=== PATIENT | male | born 1945 | race Caucasian/White ===

== ENCOUNTER 2017-02-01 16:55 | Inpatient (IN) | payer MEDICARE, OTHER ==
[~2017-02-01] VITALS: Ht 182.9 cm; Wt 86.1 kg
[~2017-02-01 16:55] MED LIST: ASPI325T4 PO; CILO50TA PO; CYAN500T18 PO; FLUT1DIS3 INH; FURO20TA3 PO; GABA600T2 PO; LATA2.5D3 LEFTEYE; LISI5TAB7 PO; MECL12.52 PO; MULT-298 PO; MULT-750 PO; OSEL75CA PO; SENN1TAB35 PO; TAMS0.4C2 PO; TRAZ150T18; TRAZ50TA18 PO; [UNRECOGNIZED DRUG - OTHER]
[2017-02-01] MEDS ORDERED: SODIUM CHLORIDE 0.9% 1,000ML IVBOLUS ONE (17:30)
[2017-02-01] MEDS ORDERED: SODIUM CHLORIDE FLUSH 10ML SYR IVF ONE (17:30)
[2017-02-01 18:09] LABS: ASPARTATE AMINO TRANSFERASE 15 U/L (15-37); BLOOD UREA NITROGEN 16 mg/dL (7-18)
[2017-02-01] MEDS ORDERED: SODIUM CHLORIDE 0.9% 1,000 ML IV SCH (19:22)
[2017-02-01] MEDS ORDERED: MORPHINE SULFATE 4 MG/ML, 1ML IVPush PRN (19:30)
[2017-02-01] MEDS ORDERED: ONDANSETRON 2MG/ML, 2ML IVP PRN (19:30)
[2017-02-01] MEDS ORDERED: BISACODYL 10 MG SUPP PR PRN (19:30)
[2017-02-01] MEDS ORDERED: DOCUSATE 100 MG CAPSULE PO PRN (19:30)
[2017-02-01] MEDS ORDERED: ENALAPRILAT 1.25 MG/ML, 2ML IVPush PRN ×2 (19:30→19:32)
[2017-02-01] MEDS ORDERED: ACETAMINOPHEN 325 MG TABLET PO PRN (19:30)
[2017-02-01] MEDS ORDERED: POLYETHYLENE GLYCOL 17 GM PACKET PO PRN (19:30)
[2017-02-01] MEDS ORDERED: OXYcodone IR 5MG TABLET PO PRN (19:30)
[2017-02-01 20:27] LABS: IS PT STATUS REG ER OR PRE ER? YES
[2017-02-01 21:00] VITALS: BP 167/90
[2017-02-01] MEDS ORDERED: ATORVASTATIN 20 MG TABLET PO SCH (21:00)
[2017-02-01 21:30] VITALS: BP 155/89
[2017-02-01] MEDS: HEPARIN 5,000 UNITS/ML, 1ML SQ SCH (22:23)
[2017-02-01] MEDS: CILOSTAZOL 100 MG TABLET PO SCH (23:04)
[2017-02-01] MEDS: ASPIRIN 325 MG TABLET EC PO SCH (23:04)
[2017-02-01] MEDS ORDERED: TEMAZEPAM 15 MG CAPSULE PO PRN (23:30)
[2017-02-02 01:58] LABS: HEMOGLOBIN 13.3 g/dL (13.7-18.0)
[2017-02-02 02:00] VITALS: BP 158/88
[2017-02-02 02:16] LABS: IS PT STATUS REG ER OR PRE ER? NO
[2017-02-02 02:22] LABS: BLOOD UREA NITROGEN 17 mg/dL (7-18)
[2017-02-02 02:25] LABS: ASPARTATE AMINO TRANSFERASE 12 U/L (15-37)
[2017-02-02] MEDS: HEPARIN 5,000 UNITS/ML, 1ML SQ SCH ×2 (06:11→15:04)
[2017-02-02 07:07] VITALS: BP 159/92
[2017-02-02] MEDS ORDERED: REGADENOSON 0.4 MG/5 ML SYRINGE ONE (08:26)
[2017-02-02] MEDS ORDERED: MULTIVITAMIN 1 TABLET PO SCH (09:00)
[2017-02-02] MEDS ORDERED: LISINOPRIL 10 MG TABLET PO SCH (09:00)
[2017-02-02] MEDS ORDERED: TAMSULOSIN 0.4 MG CAP.ER.24H PO SCH (09:00)
[2017-02-02] MEDS ORDERED: OMNIPAQUE 350 MG/ML, 100ML BOTTLE ONE (11:00)
[2017-02-02] MEDS: CILOSTAZOL 100 MG TABLET PO SCH (12:19)
[2017-02-02] MEDS: ASPIRIN 325 MG TABLET EC PO SCH (12:20)
[2017-02-02 12:35] VITALS: BP 165/91
[2017-02-02 13:20] VITALS: BP 142/82
[2017-02-02] MEDS ORDERED: ATORVASTATIN 20 MG TABLET PO SCH (21:00)
== END 2017-02-02 18:00 | disposition home or self-care (01) | DRG 69 ==
LOC: ED 17:39 → EDIP 19:22 → 4WST 22:14
PROVIDERS: ADMIT Internal Medicine; ATTEND Internal Medicine
DX: G45.9 Transient cerebral ischemic attack, unspecified (principal); N40.0 Benign prostatic hyperplasia without lower urinary tract symptoms; I10 Essential (primary) hypertension; I73.9 Peripheral vascular disease, unspecified; D75.89 Other specified diseases of blood and blood-forming organs; F10.20 Alcohol dependence, uncomplicated; I07.1 Rheumatic tricuspid insufficiency; Z87.891 Personal history of nicotine dependence; Z88.8 Allergy status to other drugs, medicaments and biological substances
CPT/HCPCS: 36415; 70450; 70496; 70498; 70551; 78452; 80053; 80061; 80307; 81003; 82306; 82533; 82607; 83036; 83735; 84439; 84443; 84484; 85025; 87040; 93005; 93017; 93306; 93880; J1644; J2785; Q9967; A9502; C9898; J7030

== ENCOUNTER 2018-12-04 14:31 | Inpatient (IN) | payer MEDICARE, OTHER ==
[~2018-12-04] VITALS: Ht 182.9 cm; Wt 79.2 kg
[~2018-12-04 14:31] MED LIST changes: +ASPI325T17 PO; -ASPI325T4 PO; -GABA600T2 PO; +GABA600T7 PO; -TRAZ50TA18 PO; +TRAZ50TA66 PO
[2018-12-04] MEDS ORDERED: SODIUM CHLORIDE FLUSH 10ML SYR IVF ONE (15:00)
--- NOTE | 2018-12-04 15:07 | NUR ---
PT PLACED ON HEART MONITOR, BP CUFF, PULSE OX. SEE TRIAGE NOTE FOR REPORT OF SX BY PT. URINAL AT BS, PT AWARE OF NEED FOR UA. CALL LIGHT WITHIN REACH, VSS.
--- NOTE | 2018-12-04 15:19 | NUR ---
PT ATTEMPTED TO PROVIDE URINE SPECIMEN, URINATED ON FLOOR INSTEAD OF IN URINAL. 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 CALL LIGHT WITHIN REACH.
[2018-12-04 15:33] LABS: MEAN CORPUSCULAR HEMOGLOBIN 35.2 pg (27.5-34.5); MEAN CORPUSCULAR HGB CONC 34.8 g/dL (33.2-36.2); MEAN CORPUSCULAR VOLUME 101.1 fL (81-97); MEAN PLATELET VOLUME 8.2 fL (7.4-10.4); PLATELET COUNT 286 x10^3/uL (130-400); RED BLOOD COUNT 3.87 x10^6/uL (4.38-5.82); RED CELL DISTRIBUTION WIDTH 12.6 % (9.4-14.8)
[2018-12-04 15:43] LABS: MD YES
[2018-12-04 15:44] LABS: ANION GAP 9 mmol/L (5-15); CALCIUM 8.6 mg/dL (8.5-10.1); CHLORIDE 96 mmol/L (98-107); CREATININE 1.13 mg/dL (0.7-1.3)
[2018-12-04 15:49] LABS: TROPONIN I < 0.015 ng/mL (0.000-0.045)
[2018-12-04 16:17] LABS: BAND#(MANUAL) 1.09 x10^3/uL; BANDS%(MANUAL) 5 % (0-7); LYMPH#(MANUAL) 0.43 x10^3/uL (1-3.4); LYMPHS% (MANUAL) 2 % (22-44); MONOS#(MANUAL) 1.95 x10^3/uL (0.3-2.7); MONOS% (MANUAL) 9 % (2-9); MYELOCYTES# (MANUAL) 0.22 x10^3/uL (0-0); MYELOCYTES% (MANUAL) 1 % (0-0); SEG#(MANUAL) 18.01 x10^3/uL (1.8-6.8); SEGS% (MANUAL) 83 % (42-75)
[2018-12-04 16:18] LABS: <PLATELET ESTIMATE> ADEQUATE; <PLT MORPHOLOGY> NORMAL PLT MORPH
--- NOTE | 2018-12-04 16:20 | NUR ---
PREPARED TO ST CATH FOR SPECIMEN BUT PT ABLE TO URINATE SMALL AMOUNT OF DK YELLOW URINE ON OWN. SPECIMEN SENT TO LAB. PT AWARE OF ADMIT, CALLED TO NOTIFY. MED REC COMPLETED TO BEST OF ABILITY-PT CAN'T REMEMBER ALL MEDS. CALL LIGHT WITHIN REACH. VSS.
[2018-12-04 16:34] LABS: MICROSCOPIC AUTO
[2018-12-04 16:42] LABS: CULTURE INDICATED? YES
--- NOTE | 2018-12-04 16:47 | NUR ---
UA RESULT BACK, PT FOR RECHECK.
[2018-12-04] MEDS ORDERED: CEFTRIAXONE 1,000 MG in SODIUM CHLORIDE 0.9% 50 ML IVPB ONE (17:00)
[2018-12-04] MEDS ORDERED: CEFTRIAXONE PMX 1GM/50ML 50 ML ONE (17:03)
--- NOTE | 2018-12-04 17:15 | NUR ---
LACTIC DRAWN BY LAB. ROCEPHIN INFUSING PER ERP ORDER. PT UPDATED ON POC. PT REQUESTING FOOD, MEAL TRAY ORDERED. CALL LIGHT WITHIN REACH.
--- NOTE | 2018-12-04 17:46 | NUR ---
TASK RN: DIET TRAY DELIVERED TO PT.
--- NOTE | 2018-12-04 17:48 | NUR ---
TASK RN: PT EATING. NO ACUTE DISTRESS NOTED. NO NEEDS REQUESTED AT THIS TIME.
[2018-12-04] MEDS ORDERED: POLYETHYLENE GLYCOL 17 GM PACKET PO PRN (18:30)
[2018-12-04] MEDS ORDERED: ONDANSETRON ODT 4 MG PO PRN (18:30)
[2018-12-04] MEDS ORDERED: ACETAMINOPHEN 325 MG TABLET PO PRN (18:30)
[2018-12-04] MEDS ORDERED: BISACODYL 10 MG SUPP PR PRN (18:30)
[2018-12-04] MEDS ORDERED: CEFTRIAXONE PMX 1GM/50ML 50 ML IV SCH (18:30)
[2018-12-04 19:22] LABS: FOLATE LEVEL > 20.0 ng/mL (3.1-17.5)
[2018-12-04] MEDS: HEPARIN 5,000 UNITS/ML, 1ML SQ SCH (19:52)
[2018-12-04] MEDS: SODIUM CHLORIDE 0.9% 1,000 ML IV SCH (19:52)
[2018-12-04 20:01] VITALS: BP 147/79
[2018-12-04 20:39] VITALS: BP 125/72
[2018-12-04] MEDS: OXYcodone/APAP 5/325MG TABLET PO PRN (23:55)
[2018-12-05 00:04] VITALS: BP 101/62
[2018-12-05] MEDS: HEPARIN 5,000 UNITS/ML, 1ML SQ SCH ×3 (02:26→18:30)
[2018-12-05] MEDS: OXYcodone/APAP 5/325MG TABLET PO PRN ×2 (05:58→16:46)
[2018-12-05 05:59] LABS: MEAN CORPUSCULAR HEMOGLOBIN 34.6 pg (27.5-34.5); MEAN CORPUSCULAR HGB CONC 33.9 g/dL (33.2-36.2); MEAN PLATELET VOLUME 8.8 fL (7.4-10.4); PLATELET COUNT 255 x10^3/uL (130-400); RED BLOOD COUNT 3.52 x10^6/uL (4.38-5.82); RED CELL DISTRIBUTION WIDTH 12.6 % (9.4-14.8)
[2018-12-05 06:17] LABS: ALBUMIN 2.6 g/dL (3.4-5.0); ANION GAP 9 mmol/L (5-15); CALCIUM 8.2 mg/dL (8.5-10.1); CHLORIDE 101 mmol/L (98-107)
[2018-12-05 06:22] LABS: ALANINE AMINOTRANSFERASE 22 U/L (12-78); ALKALINE PHOSPHATASE 88 U/L (45-117); BILIRUBIN,TOTAL 0.5 mg/dL (0.2-1.0); CREATININE 1.02 mg/dL (0.7-1.3); TOTAL PROTEIN 6.1 g/dL (6.4-8.2)
[2018-12-05 06:23] LABS: MD YES
[2018-12-05 06:24] LABS: BAND#(MANUAL) 0.56 x10^3/uL; BANDS%(MANUAL) 4 % (0-7); LYMPHS% (MANUAL) 5 % (22-44)
[2018-12-05 06:25] LABS: MONOS#(MANUAL) 1.26 x10^3/uL (0.3-2.7); MONOS% (MANUAL) 9 % (2-9); SEG#(MANUAL) 11.48 x10^3/uL (1.8-6.8); SEGS% (MANUAL) 82 % (42-75)
[2018-12-05 06:27] LABS: <PLATELET ESTIMATE> ADEQUATE; <PLT MORPHOLOGY> NORMAL PLT MORPH
[2018-12-05] MEDS: SODIUM CHLORIDE 0.9% 1,000 ML IV SCH ×2 (08:40→19:51)
[2018-12-05] MEDS: LISINOPRIL 10 MG TABLET PO SCH (08:41)
[2018-12-05] MEDS: SENNA/DOCUSATE TABLET PO SCH (08:41)
[2018-12-05 09:45] VITALS: BP 111/70
[2018-12-05 14:00] VITALS: BP 122/75
[2018-12-05] MEDS: CEFTRIAXONE PMX 1GM/50ML 50 ML IV SCH (17:35)
[2018-12-05 18:28] VITALS: BP 116/69
[2018-12-05 18:43] VITALS: BP 148/84
[2018-12-05] MEDS ORDERED: LORazepam 2 MG/ML, 1ML IV PRN (19:00)
[2018-12-05] MEDS ORDERED: LORazepam 2 MG/ML, 1ML IVPush PRN (19:00)
[2018-12-05] MEDS ORDERED: LORazepam 1MG TABLET PO PRN ×3 (19:00)
[2018-12-05] MEDS ORDERED: LORazepam 0.5MG TABLET PO PRN (19:00)
[2018-12-05] MEDS: LORazepam 1MG TABLET PO PRN (19:51)
[2018-12-05] MEDS: LORazepam 2 MG/ML, 1ML IV PRN (21:11)
[2018-12-06] VITALS (7 sets, daily range): BP systolic 145–167; BP diastolic 82–95
[2018-12-06] MEDS: LORazepam 2 MG/ML, 1ML IV PRN ×9 (00:19→23:24)
[2018-12-06] MEDS: HEPARIN 5,000 UNITS/ML, 1ML SQ SCH ×3 (01:33→21:26)
[2018-12-06] MEDS: SODIUM CHLORIDE 0.9% 1,000 ML IV SCH ×2 (04:21→15:00)
[2018-12-06] MEDS: LORazepam 1MG TABLET PO PRN ×2 (08:54→11:01)
[2018-12-06] MEDS: LISINOPRIL 10 MG TABLET PO SCH (08:54)
[2018-12-06] MEDS: SENNA/DOCUSATE TABLET PO SCH ×2 (08:54→09:00)
[2018-12-06 11:28] LABS: MEAN CORPUSCULAR HGB CONC 34.1 g/dL (33.2-36.2); MEAN CORPUSCULAR VOLUME 102.4 fL (81-97); MEAN PLATELET VOLUME 8.2 fL (7.4-10.4); PLATELET COUNT 304 x10^3/uL (130-400); RED BLOOD COUNT 3.64 x10^6/uL (4.38-5.82); RED CELL DISTRIBUTION WIDTH 12.8 % (9.4-14.8)
[2018-12-06 11:36] LABS: ANION GAP 11 mmol/L (5-15); CALCIUM 8.8 mg/dL (8.5-10.1); CHLORIDE 108 mmol/L (98-107); CREATININE 0.84 mg/dL (0.7-1.3)
[2018-12-06 11:45] LABS: BASOPHILS # (AUTO) 0.01 x10^3/uL (0-0.1); BASOPHILS % (AUTO) 0 % (0-1); EOSINOPHILS # (AUTO) 0.08 x10^3/uL (0-0.4); EOSINOPHILS % (AUTO) 1 % (1-7); LYMPHOCYTES # (AUTO) 1.01 x10^3/uL (1-3.4); LYMPHOCYTES % (AUTO) 10 % (22-44); MD SCAN; MONOCYTES # (AUTO) 1.08 x10^3/uL (0.2-0.8); MONOCYTES % (AUTO) 10 % (2-9); NEUTROPHILS # (AUTO) 8.27 x10^3/uL (1.8-6.8); NEUTROPHILS % (AUTO) 79 % (42-75)
[2018-12-06] MEDS ORDERED: CHLORDIAZEPOXIDE 25 MG CAPSULE PO PRN (15:00)
[2018-12-06] MEDS: CEFTRIAXONE PMX 1GM/50ML 50 ML IV SCH (17:12)
[2018-12-06] MEDS: POTASSIUM CHLORIDE 20 MEQ, MAGNESIUM SULFATE 1 GM, FOLIC ACID 1 MG, THIAMINE 200 MG, MV... IV SCH (18:03)
[2018-12-06] MEDS: hydrALAzine 20 MG/ML, 1ML IV PRN (22:13)
[2018-12-07 01:20] VITALS: BP 137/72
[2018-12-07] MEDS: HEPARIN 5,000 UNITS/ML, 1ML SQ SCH ×3 (04:51→23:38)
[2018-12-07] MEDS: SODIUM CHLORIDE 0.9% 1,000 ML IV SCH (04:52)
[2018-12-07 06:28] VITALS: BP 153/87
[2018-12-07] MEDS: SENNA/DOCUSATE TABLET PO SCH (09:00)
[2018-12-07] MEDS: LISINOPRIL 10 MG TABLET PO SCH (09:00)
[2018-12-07 10:19] LABS: BASOPHILS % (AUTO) 0 % (0-1); EOSINOPHILS # (AUTO) 0.05 x10^3/uL (0-0.4); EOSINOPHILS % (AUTO) 1 % (1-7); LYMPHOCYTES # (AUTO) 1.01 x10^3/uL (1-3.4); LYMPHOCYTES % (AUTO) 9 % (22-44); MD NO; MEAN CORPUSCULAR HEMOGLOBIN 33.4 pg (27.5-34.5); MEAN CORPUSCULAR HGB CONC 32.9 g/dL (33.2-36.2); MEAN CORPUSCULAR VOLUME 101.6 fL (81-97); MEAN PLATELET VOLUME 8.4 fL (7.4-10.4); MONOCYTES # (AUTO) 0.98 x10^3/uL (0.2-0.8); MONOCYTES % (AUTO) 9 % (2-9); NEUTROPHILS # (AUTO) 9.22 x10^3/uL (1.8-6.8); NEUTROPHILS % (AUTO) 82 % (42-75); PLATELET COUNT 362 x10^3/uL (130-400); RED BLOOD COUNT 3.93 x10^6/uL (4.38-5.82)
[2018-12-07 10:26] LABS: ALANINE AMINOTRANSFERASE 26 U/L (12-78); ALBUMIN 2.5 g/dL (3.4-5.0); ANION GAP 11 mmol/L (5-15); CHLORIDE 113 mmol/L (98-107); CREATININE 0.71 mg/dL (0.7-1.3)
[2018-12-07 10:28] LABS: ALKALINE PHOSPHATASE 80 U/L (45-117); BILIRUBIN,TOTAL 0.3 mg/dL (0.2-1.0); TOTAL PROTEIN 6.4 g/dL (6.4-8.2)
[2018-12-07] MEDS: LORazepam 2 MG/ML, 1ML IV PRN ×7 (12:17→23:40)
[2018-12-07 13:54] VITALS: BP 165/92
[2018-12-07] MEDS ORDERED: LABETALOL 5MG/ML, 20ML IVPush PRN (15:00)
[2018-12-07] MEDS: CEFTRIAXONE PMX 1GM/50ML 50 ML IV SCH (16:28)
[2018-12-07] MEDS: POTASSIUM CHLORIDE 20 MEQ, MAGNESIUM SULFATE 1 GM, FOLIC ACID 1 MG, THIAMINE 200 MG, MV... IV SCH (19:39)
[2018-12-07 20:00] VITALS: BP 167/93
[2018-12-08 02:28] VITALS: BP 162/96
[2018-12-08] MEDS: hydrALAzine 20 MG/ML, 1ML IV PRN ×2 (02:36→20:35)
[2018-12-08] MEDS: LORazepam 2 MG/ML, 1ML IV PRN ×4 (05:26→20:09)
[2018-12-08 06:31] VITALS: BP 164/96
[2018-12-08 07:00] LABS: MEAN CORPUSCULAR HEMOGLOBIN 34.4 pg (27.5-34.5); MEAN CORPUSCULAR HGB CONC 33.8 g/dL (33.2-36.2); MEAN CORPUSCULAR VOLUME 101.7 fL (81-97); MEAN PLATELET VOLUME 8.2 fL (7.4-10.4); PLATELET COUNT 403 x10^3/uL (130-400); RED BLOOD COUNT 4.04 x10^6/uL (4.38-5.82)
[2018-12-08 07:03] LABS: ALBUMIN 2.5 g/dL (3.4-5.0); ANION GAP 8 mmol/L (5-15); CALCIUM 8.9 mg/dL (8.5-10.1); CHLORIDE 114 mmol/L (98-107)
[2018-12-08 07:08] LABS: ALANINE AMINOTRANSFERASE 28 U/L (12-78); ALKALINE PHOSPHATASE 81 U/L (45-117); BILIRUBIN,TOTAL 0.4 mg/dL (0.2-1.0); CREATININE 0.76 mg/dL (0.7-1.3); TOTAL PROTEIN 6.5 g/dL (6.4-8.2)
[2018-12-08 07:25] LABS: BASOPHILS # (AUTO) 0.12 x10^3/uL (0-0.1); BASOPHILS % (AUTO) 1 % (0-1); EOSINOPHILS # (AUTO) 0.05 x10^3/uL (0-0.4); EOSINOPHILS % (AUTO) 0 % (1-7); LYMPHOCYTES # (AUTO) 1.55 x10^3/uL (1-3.4); LYMPHOCYTES % (AUTO) 11 % (22-44); MD SCAN; MONOCYTES # (AUTO) 1.04 x10^3/uL (0.2-0.8); MONOCYTES % (AUTO) 8 % (2-9); NEUTROPHILS # (AUTO) 10.86 x10^3/uL (1.8-6.8); NEUTROPHILS % (AUTO) 80 % (42-75)
[2018-12-08] MEDS: PIPERACILLIN/TAZO/PMX 3.375GM 50 ML IV SCH ×3 (08:28→19:28)
[2018-12-08] MEDS: HEPARIN 5,000 UNITS/ML, 1ML SQ SCH ×2 (08:28→18:43)
[2018-12-08] MEDS: LISINOPRIL 10 MG TABLET PO SCH (09:00)
[2018-12-08] MEDS: SENNA/DOCUSATE TABLET PO SCH (09:00)
[2018-12-08] MEDS ORDERED: FUROSEMIDE 20 MG/2 ML ONE (10:06)
[2018-12-08] MEDS ORDERED: FUROSEMIDE 20 MG/2 ML IV ONE (10:30)
[2018-12-08 12:38] VITALS: BP 175/77
[2018-12-08 14:46] VITALS: BP 157/92
[2018-12-08 20:00] VITALS: BP 163/99
[2018-12-08] MEDS: POTASSIUM CHLORIDE 20 MEQ, MAGNESIUM SULFATE 1 GM, FOLIC ACID 1 MG, THIAMINE 200 MG, MV... IV SCH (20:09)
[2018-12-09] MEDS: HEPARIN 5,000 UNITS/ML, 1ML SQ SCH ×3 (00:33→17:19)
[2018-12-09 00:59] VITALS: BP 163/93
[2018-12-09] MEDS: PIPERACILLIN/TAZO/PMX 3.375GM 50 ML IV SCH ×4 (01:56→20:20)
[2018-12-09 04:59] LABS: ALANINE AMINOTRANSFERASE 32 U/L (12-78); ALBUMIN 2.4 g/dL (3.4-5.0); ANION GAP 6 mmol/L (5-15); CHLORIDE 116 mmol/L (98-107); CREATININE 0.85 mg/dL (0.7-1.3)
[2018-12-09 05:01] LABS: ALKALINE PHOSPHATASE 78 U/L (45-117); BILIRUBIN,TOTAL 0.6 mg/dL (0.2-1.0); TOTAL PROTEIN 6.5 g/dL (6.4-8.2)
[2018-12-09 06:30] VITALS: BP 177/103
[2018-12-09 07:33] LABS: MEAN CORPUSCULAR HEMOGLOBIN 34.1 pg (27.5-34.5); MEAN CORPUSCULAR HGB CONC 33.3 g/dL (33.2-36.2); MEAN CORPUSCULAR VOLUME 102.2 fL (81-97); MEAN PLATELET VOLUME 8.4 fL (7.4-10.4); PLATELET COUNT 431 x10^3/uL (130-400); RED BLOOD COUNT 4.06 x10^6/uL (4.38-5.82); RED CELL DISTRIBUTION WIDTH 13.4 % (9.4-14.8)
[2018-12-09 07:48] LABS: MD YES
[2018-12-09 07:50] LABS: <PLATELET ESTIMATE> INCREASED; BAND#(MANUAL) 0.13 x10^3/uL; BANDS%(MANUAL) 1 % (0-7); LYMPH#(MANUAL) 1.54 x10^3/uL (1-3.4); LYMPHS% (MANUAL) 12 % (22-44); MONOS#(MANUAL) 1.02 x10^3/uL (0.3-2.7); MONOS% (MANUAL) 8 % (2-9); SEG#(MANUAL) 10.11 x10^3/uL (1.8-6.8); SEGS% (MANUAL) 79 % (42-75)
[2018-12-09 07:51] LABS: LARGE PLATELETS 1+; TOXIC GRAN 1+
[2018-12-09] MEDS: LISINOPRIL 10 MG TABLET PO SCH (08:43)
[2018-12-09] MEDS: SENNA/DOCUSATE TABLET PO SCH (08:43)
[2018-12-09] MEDS: LORazepam 2 MG/ML, 1ML IV PRN (10:07)
[2018-12-09 12:42] VITALS: BP 163/95
[2018-12-09] MEDS ORDERED: POTASSIUM CHLORIDE 40 MEQ in DEXTROSE 5% 1,000 ML IV SCH (13:00)
[2018-12-09] MEDS: hydrALAzine 20 MG/ML, 1ML IV PRN (13:09)
[2018-12-09] MEDS: KETOROLAC 30 MG/1 ML IVPush SCH ×2 (14:35→20:19)
[2018-12-09 15:42] VITALS: BP 158/94
[2018-12-09] MEDS ORDERED: MORPHINE SULFATE 4 MG/ML, 1ML IVPush ONE (16:00)
[2018-12-09] MEDS: MORPHINE SULFATE 4 MG/ML, 1ML IVPush PRN (18:03)
[2018-12-09 20:14] VITALS: BP 151/93
[2018-12-10] MEDS: HEPARIN 5,000 UNITS/ML, 1ML SQ SCH ×3 (00:40→16:45)
[2018-12-10] MEDS: PIPERACILLIN/TAZO/PMX 3.375GM 50 ML IV SCH ×4 (02:06→20:49)
[2018-12-10] MEDS: KETOROLAC 30 MG/1 ML IVPush SCH ×4 (02:30→21:50)
[2018-12-10 03:48] VITALS: BP 143/77
[2018-12-10 05:40] LABS: BASOPHILS # (AUTO) 0.02 x10^3/uL (0-0.1); BASOPHILS % (AUTO) 0 % (0-1); EOSINOPHILS # (AUTO) 0.14 x10^3/uL (0-0.4); EOSINOPHILS % (AUTO) 2 % (1-7); LYMPHOCYTES # (AUTO) 1.71 x10^3/uL (1-3.4); LYMPHOCYTES % (AUTO) 22 % (22-44); MD NO; MEAN CORPUSCULAR HEMOGLOBIN 34.5 pg (27.5-34.5); MEAN CORPUSCULAR HGB CONC 33.7 g/dL (33.2-36.2); MEAN CORPUSCULAR VOLUME 102.3 fL (81-97); MEAN PLATELET VOLUME 8.5 fL (7.4-10.4); MONOCYTES # (AUTO) 0.76 x10^3/uL (0.2-0.8); MONOCYTES % (AUTO) 10 % (2-9); NEUTROPHILS # (AUTO) 5.25 x10^3/uL (1.8-6.8); NEUTROPHILS % (AUTO) 67 % (42-75); PLATELET COUNT 449 x10^3/uL (130-400); RED BLOOD COUNT 3.88 x10^6/uL (4.38-5.82); RED CELL DISTRIBUTION WIDTH 13.5 % (9.4-14.8)
[2018-12-10 05:47] LABS: ANION GAP 7 mmol/L (5-15); CALCIUM 8.3 mg/dL (8.5-10.1); CHLORIDE 123 mmol/L (98-107)
[2018-12-10 05:50] LABS: CREATININE 1.04 mg/dL (0.7-1.3)
[2018-12-10] MEDS: MORPHINE SULFATE 4 MG/ML, 1ML IVPush PRN (06:17)
[2018-12-10 07:25] VITALS: BP 165/88
[2018-12-10] MEDS ORDERED: SODIUM CHLORIDE 0.45% 1,000 ML IV SCH (08:30)
[2018-12-10] MEDS: SENNA/DOCUSATE TABLET PO SCH (09:00)
[2018-12-10] MEDS: LISINOPRIL 10 MG TABLET PO SCH (09:00)
[2018-12-10 12:46] VITALS: BP 160/86
[2018-12-10 13:05] LABS: ANION GAP 7 mmol/L (5-15); CALCIUM 8.9 mg/dL (8.5-10.1); CHLORIDE 121 mmol/L (98-107)
[2018-12-10] MEDS: NYSTATIN 500,000 UNITS/5 ML UDC PO SCH ×3 (14:58→21:50)
[2018-12-10 19:52] VITALS: BP 153/79
[2018-12-11] MEDS: HEPARIN 5,000 UNITS/ML, 1ML SQ SCH ×3 (00:43→17:50)
[2018-12-11 02:49] VITALS: BP 151/74
[2018-12-11] MEDS: PIPERACILLIN/TAZO/PMX 3.375GM 50 ML IV SCH ×2 (03:22→09:51)
[2018-12-11] MEDS: KETOROLAC 30 MG/1 ML IVPush SCH (03:22)
[2018-12-11 06:12] LABS: ALANINE AMINOTRANSFERASE 46 U/L (12-78); ALBUMIN 2.4 g/dL (3.4-5.0); ANION GAP 8 mmol/L (5-15); CALCIUM 8.4 mg/dL (8.5-10.1); CHLORIDE 124 mmol/L (98-107); CREATININE 1.36 mg/dL (0.7-1.3)
[2018-12-11 06:14] LABS: ALKALINE PHOSPHATASE 77 U/L (45-117); BILIRUBIN,TOTAL 1.1 mg/dL (0.2-1.0); TOTAL PROTEIN 6.6 g/dL (6.4-8.2)
[2018-12-11] MEDS: NYSTATIN 500,000 UNITS/5 ML UDC PO SCH ×4 (06:44→21:47)
[2018-12-11 06:55] VITALS: BP 166/77
[2018-12-11] MEDS ORDERED: DEXTROSE 5%, 100ML IV ONE ×5 (07:00→11:00)
[2018-12-11] MEDS ORDERED: DEXTROSE 5% 500 ML IV SCH (07:30)
[2018-12-11] MEDS ORDERED: POTASSIUM CHLORIDE 20 MEQ TAB.ER.PRT PO SCH (09:00)
[2018-12-11] MEDS: LISINOPRIL 10 MG TABLET PO SCH (09:50)
[2018-12-11] MEDS: SENNA/DOCUSATE TABLET PO SCH (09:50)
[2018-12-11] MEDS ORDERED: CYANOCOBALAMIN IV ONE (10:30)
[2018-12-11] MEDS ORDERED: CYANOCOBALAMIN 1,000 MCG/ML, 1ML IM ONE (10:30)
[2018-12-11] MEDS ORDERED: SODIUM CHLORIDE 0.9% IV ONE (10:30)
[2018-12-11] MEDS ORDERED: THIAMINE IV ONE (10:30)
[2018-12-11] MEDS ORDERED: AMOXICILLIN/CLAV 875-125MG TABLET PO SCH (10:30)
[2018-12-11] MEDS ORDERED: GLUCAGON 1 MG IM PRN (11:00)
[2018-12-11] MEDS ORDERED: DEXTROSE 4 GM TAB.CHEW PO PRN (11:00)
[2018-12-11] MEDS ORDERED: DEXTROSE 50%, 50ML SYRINGE IVPush PRN (11:00)
[2018-12-11 12:04] VITALS: BP 147/71
[2018-12-11 12:42] LABS: ANION GAP 8 mmol/L (5-15); CALCIUM 8.4 mg/dL (8.5-10.1); CHLORIDE 123 mmol/L (98-107); CREATININE 1.43 mg/dL (0.7-1.3)
[2018-12-11] MEDS ORDERED: POTASSIUM CHLORIDE 20 MEQ in DEXTROSE 5% 1,000 ML IV SCH (13:00)
[2018-12-11 17:14] LABS: ANION GAP 10 mmol/L (5-15); CALCIUM 8.5 mg/dL (8.5-10.1); CHLORIDE 126 mmol/L (98-107); CREATININE 1.34 mg/dL (0.7-1.3)
[2018-12-11 18:29] LABS: ALBUMIN 2.5 g/dL (3.4-5.0)
[2018-12-11 18:33] LABS: BILIRUBIN, DIRECT 0.4 mg/dL (0.1-0.2); BILIRUBIN,INDIRECT 0.4 mg/dL (0.0-2.0); BILIRUBIN,TOTAL 0.8 mg/dL (0.2-1.0); TOTAL PROTEIN 6.8 g/dL (6.4-8.2)
[2018-12-11 19:51] VITALS: BP 110/79
[2018-12-11] MEDS ORDERED: LACTULOSE 20 GM/30 ML UDC PO SCH (21:00)
[2018-12-11] MEDS: RIFAXIMIN 550 MG TABLET PO SCH (21:47)
[2018-12-11] MEDS: POTASSIUM CHLORIDE 20 MEQ TAB.ER.PRT PO SCH (21:49)
[2018-12-11] MEDS: SODIUM CHLORIDE FLUSH 10ML SYR IVF SCH (21:50)
[2018-12-11 22:22] LABS: ALBUMIN 2.4 g/dL (3.4-5.0); ANION GAP 8 mmol/L (5-15); CALCIUM 8.4 mg/dL (8.5-10.1); CHLORIDE 124 mmol/L (98-107); CREATININE 1.24 mg/dL (0.7-1.3)
[2018-12-12] MEDS: POTASSIUM CHLORIDE 20 MEQ TAB.ER.PRT PO SCH (00:16)
[2018-12-12] MEDS ORDERED: POTASSIUM CHLORIDE 10% 40 MEQ/30 ML UDC NG ONE (00:30)
[2018-12-12] MEDS: HEPARIN 5,000 UNITS/ML, 1ML SQ SCH ×3 (01:51→18:15)
[2018-12-12 01:59] VITALS: BP 144/82
[2018-12-12 05:36] LABS: BASOPHILS # (AUTO) 0.04 x10^3/uL (0-0.1); BASOPHILS % (AUTO) 0 % (0-1); EOSINOPHILS # (AUTO) 0.17 x10^3/uL (0-0.4); EOSINOPHILS % (AUTO) 2 % (1-7); LYMPHOCYTES % (AUTO) 22 % (22-44); MD NO; MEAN CORPUSCULAR HEMOGLOBIN 33.8 pg (27.5-34.5); MEAN CORPUSCULAR HGB CONC 32.7 g/dL (33.2-36.2); MEAN CORPUSCULAR VOLUME 103.3 fL (81-97); MEAN PLATELET VOLUME 8.7 fL (7.4-10.4); MONOCYTES # (AUTO) 0.81 x10^3/uL (0.2-0.8); MONOCYTES % (AUTO) 8 % (2-9); NEUTROPHILS # (AUTO) 6.95 x10^3/uL (1.8-6.8); NEUTROPHILS % (AUTO) 68 % (42-75); PLATELET COUNT 425 x10^3/uL (130-400); RED CELL DISTRIBUTION WIDTH 13.3 % (9.4-14.8)
[2018-12-12 05:44] LABS: CHLORIDE 124 mmol/L (98-107)
[2018-12-12] MEDS: NYSTATIN 500,000 UNITS/5 ML UDC PO SCH ×4 (05:46→23:20)
[2018-12-12] MEDS: CARVEDILOL 12.5 MG TABLET PO SCH ×2 (05:46→18:16)
[2018-12-12 05:49] VITALS: BP 149/72
[2018-12-12 05:51] LABS: ALANINE AMINOTRANSFERASE 46 U/L (12-78); ALBUMIN 2.3 g/dL (3.4-5.0); ALKALINE PHOSPHATASE 65 U/L (45-117); ANION GAP 6 mmol/L (5-15); BILIRUBIN,TOTAL 0.7 mg/dL (0.2-1.0); CALCIUM 8.1 mg/dL (8.5-10.1); CREATININE 1.14 mg/dL (0.7-1.3); TOTAL PROTEIN 6.3 g/dL (6.4-8.2)
[2018-12-12 06:48] VITALS: BP 126/67
[2018-12-12] MEDS ORDERED: DEXTROSE 5% 1,000 ML IV SCH (07:00)
[2018-12-12] MEDS: SENNA/DOCUSATE TABLET PO SCH (08:19)
[2018-12-12] MEDS: RIFAXIMIN 550 MG TABLET PO SCH ×2 (08:19→22:26)
[2018-12-12] MEDS: LACTULOSE 20 GM/30 ML UDC PO SCH ×3 (08:19→22:26)
[2018-12-12] MEDS: SODIUM CHLORIDE FLUSH 10ML SYR IVF SCH ×2 (08:22→22:27)
[2018-12-12] MEDS ORDERED: OMNIPAQUE 350 MG/ML, 100ML BOTTLE ONE (10:14)
[2018-12-12 12:17] VITALS: BP 130/69
[2018-12-12] MEDS ORDERED: POTASSIUM CHLORIDE 20 MEQ in DEXTROSE 5% 1,000 ML IV SCH (13:00)
[2018-12-12 15:02] LABS: ANION GAP 8 mmol/L (5-15); CALCIUM 8.5 mg/dL (8.5-10.1); CHLORIDE 123 mmol/L (98-107); CREATININE 1.11 mg/dL (0.7-1.3)
[2018-12-12] MEDS ORDERED: THIAMINE 200 MG in SODIUM CHLORIDE 0.9% 50 ML IV ONE (16:00)
[2018-12-12 19:09] VITALS: BP 114/69
[2018-12-12 21:59] LABS: ANION GAP 8 mmol/L (5-15); CALCIUM 8.3 mg/dL (8.5-10.1); CHLORIDE 120 mmol/L (98-107); CREATININE 0.98 mg/dL (0.7-1.3)
[2018-12-13 01:49] VITALS: BP 121/69
[2018-12-13] MEDS: HEPARIN 5,000 UNITS/ML, 1ML SQ SCH ×2 (02:52→10:17)
[2018-12-13] MEDS: CARVEDILOL 12.5 MG TABLET PO SCH ×2 (05:59→17:36)
[2018-12-13 06:07] LABS: BASOPHILS # (AUTO) 0.03 x10^3/uL (0-0.1); BASOPHILS % (AUTO) 0 % (0-1); EOSINOPHILS # (AUTO) 0.33 x10^3/uL (0-0.4); EOSINOPHILS % (AUTO) 4 % (1-7); LYMPHOCYTES # (AUTO) 2.09 x10^3/uL (1-3.4); LYMPHOCYTES % (AUTO) 24 % (22-44); MD NO; MEAN CORPUSCULAR HEMOGLOBIN 34.5 pg (27.5-34.5); MEAN CORPUSCULAR HGB CONC 33.5 g/dL (33.2-36.2); MEAN CORPUSCULAR VOLUME 103.2 fL (81-97); MEAN PLATELET VOLUME 8.9 fL (7.4-10.4); MONOCYTES # (AUTO) 0.73 x10^3/uL (0.2-0.8); MONOCYTES % (AUTO) 8 % (2-9); NEUTROPHILS # (AUTO) 5.53 x10^3/uL (1.8-6.8); NEUTROPHILS % (AUTO) 64 % (42-75); PLATELET COUNT 397 x10^3/uL (130-400); RED BLOOD COUNT 3.77 x10^6/uL (4.38-5.82); RED CELL DISTRIBUTION WIDTH 13.4 % (9.4-14.8)
[2018-12-13 06:13] LABS: ALBUMIN 2.4 g/dL (3.4-5.0); ANION GAP 6 mmol/L (5-15); CALCIUM 8.7 mg/dL (8.5-10.1); CHLORIDE 120 mmol/L (98-107)
[2018-12-13] MEDS: NYSTATIN 500,000 UNITS/5 ML UDC PO SCH ×4 (06:27→20:37)
[2018-12-13 06:47] VITALS: BP 152/75
[2018-12-13] MEDS ORDERED: DEXTROSE 5% 1,000 ML IV SCH (07:00)
[2018-12-13] MEDS ORDERED: DEXTROSE 5% 250 ML IV SCH (07:30)
[2018-12-13] MEDS ORDERED: POTASSIUM CHLORIDE 20 MEQ TAB.ER.PRT PO ONE ×2 (07:30→11:30)
[2018-12-13] MEDS: SODIUM CHLORIDE FLUSH 10ML SYR IVF SCH ×2 (08:46→20:38)
[2018-12-13] MEDS: SENNA/DOCUSATE TABLET PO SCH (09:00)
[2018-12-13] MEDS: RIFAXIMIN 550 MG TABLET PO SCH ×2 (10:16→20:37)
[2018-12-13] MEDS: LACTULOSE 20 GM/30 ML UDC PO SCH ×3 (10:17→20:37)
[2018-12-13 12:07] VITALS: BP 147/80
[2018-12-13] MEDS ORDERED: THIAMINE 200 MG in SODIUM CHLORIDE 0.9% 50 ML IV ONE (16:00)
[2018-12-13] MEDS: ENOXAPARIN 40 MG/0.4 ML SQ SCH (16:17)
[2018-12-13 16:18] LABS: ANION GAP 5 mmol/L (5-15); CALCIUM 8.8 mg/dL (8.5-10.1); CHLORIDE 116 mmol/L (98-107); CREATININE 0.82 mg/dL (0.7-1.3)
[2018-12-13 17:29] VITALS: BP 134/80
[2018-12-13 20:00] VITALS: BP 153/80
[2018-12-14 02:00] VITALS: BP 148/86
[2018-12-14 04:50] LABS: BASOPHILS # (AUTO) 0.04 x10^3/uL (0-0.1); BASOPHILS % (AUTO) 1 % (0-1); EOSINOPHILS # (AUTO) 0.23 x10^3/uL (0-0.4); EOSINOPHILS % (AUTO) 3 % (1-7); LYMPHOCYTES # (AUTO) 2.04 x10^3/uL (1-3.4); LYMPHOCYTES % (AUTO) 28 % (22-44); MD NO; MEAN CORPUSCULAR HGB CONC 33.1 g/dL (33.2-36.2); MEAN CORPUSCULAR VOLUME 102.7 fL (81-97); MEAN PLATELET VOLUME 8.9 fL (7.4-10.4); MONOCYTES # (AUTO) 0.62 x10^3/uL (0.2-0.8); MONOCYTES % (AUTO) 9 % (2-9); NEUTROPHILS # (AUTO) 4.35 x10^3/uL (1.8-6.8); NEUTROPHILS % (AUTO) 60 % (42-75); PLATELET COUNT 387 x10^3/uL (130-400); RED BLOOD COUNT 3.74 x10^6/uL (4.38-5.82); RED CELL DISTRIBUTION WIDTH 13.4 % (9.4-14.8)
[2018-12-14 05:02] LABS: ALBUMIN 2.4 g/dL (3.4-5.0); ANION GAP 5 mmol/L (5-15); CALCIUM 8.5 mg/dL (8.5-10.1); CHLORIDE 116 mmol/L (98-107)
[2018-12-14 05:06] LABS: ALANINE AMINOTRANSFERASE 44 U/L (12-78); ALKALINE PHOSPHATASE 65 U/L (45-117); BILIRUBIN,TOTAL 0.5 mg/dL (0.2-1.0); CREATININE 0.85 mg/dL (0.7-1.3); TOTAL PROTEIN 6.4 g/dL (6.4-8.2)
[2018-12-14 06:16] VITALS: BP 158/87
[2018-12-14] MEDS: NYSTATIN 500,000 UNITS/5 ML UDC PO SCH ×4 (06:18→21:15)
[2018-12-14] MEDS: CARVEDILOL 12.5 MG TABLET PO SCH ×2 (06:18→17:47)
[2018-12-14] MEDS ORDERED: DEXTROSE 5% 1,000 ML IV SCH ×2 (07:00)
[2018-12-14] MEDS ORDERED: DEXTROSE 5% 250 ML IV SCH (07:00)
[2018-12-14] MEDS ORDERED: POTASSIUM CHLORIDE 20 MEQ TAB.ER.PRT PO ONE ×2 (07:00→11:00)
[2018-12-14 07:58] VITALS: BP 118/72
[2018-12-14] MEDS: LACTULOSE 20 GM/30 ML UDC PO SCH (08:21)
[2018-12-14] MEDS: RIFAXIMIN 550 MG TABLET PO SCH (08:21)
[2018-12-14] MEDS: SENNA/DOCUSATE TABLET PO SCH (08:21)
[2018-12-14] MEDS: DEXTROSE 5% 1,000 ML IV SCH ×2 (08:22→15:22)
[2018-12-14] MEDS: SODIUM CHLORIDE FLUSH 10ML SYR IVF SCH ×2 (08:23→21:00)
[2018-12-14 13:08] VITALS: BP 155/70
[2018-12-14 14:12] LABS: ANION GAP 6 mmol/L (5-15); CALCIUM 8.1 mg/dL (8.5-10.1); CHLORIDE 114 mmol/L (98-107); CREATININE 0.88 mg/dL (0.7-1.3)
[2018-12-14] MEDS: ENOXAPARIN 40 MG/0.4 ML SQ SCH (15:22)
[2018-12-14] MEDS ORDERED: LACTULOSE 20 GM/30 ML UDC PO PRN (15:30)
--- NOTE | 2018-12-14 16:41 | NUR ---
REC. NTL/YESI; swallow precaution sheet at bedside Addendum: 12/14/18 at 1642 by NANDO PAIZ STS Amended: Links added.
[2018-12-14] MEDS ORDERED: THIAMINE 200 MG in SODIUM CHLORIDE 0.9% 50 ML IV ONE (17:00)
[2018-12-14] MEDS ORDERED: VALPROATE SODIUM 250 MG/5 ML ORAL SOLN PO PRN (17:30)
[2018-12-14] MEDS: LORazepam 0.5MG TABLET PO PRN (17:47)
[2018-12-14] MEDS ORDERED: DIVALPROEX 125 MG CAP.SPRINK PO PRN (18:00)
[2018-12-14 19:27] LABS: MICROSCOPIC AUTO
[2018-12-14 19:29] LABS: CULTURE INDICATED? YES
[2018-12-14 20:00] VITALS: BP 101/60
[2018-12-15 01:19] VITALS: BP 147/81
[2018-12-15 05:13] LABS: BASOPHILS # (AUTO) 0.05 x10^3/uL (0-0.1); BASOPHILS % (AUTO) 1 % (0-1); EOSINOPHILS # (AUTO) 0.18 x10^3/uL (0-0.4); EOSINOPHILS % (AUTO) 3 % (1-7); LYMPHOCYTES # (AUTO) 1.98 x10^3/uL (1-3.4); LYMPHOCYTES % (AUTO) 28 % (22-44); MD NO; MEAN CORPUSCULAR HEMOGLOBIN 33.9 pg (27.5-34.5); MEAN CORPUSCULAR HGB CONC 33.5 g/dL (33.2-36.2); MEAN CORPUSCULAR VOLUME 101.3 fL (81-97); MEAN PLATELET VOLUME 9.6 fL (7.4-10.4); MONOCYTES # (AUTO) 0.51 x10^3/uL (0.2-0.8); MONOCYTES % (AUTO) 7 % (2-9); NEUTROPHILS # (AUTO) 4.25 x10^3/uL (1.8-6.8); NEUTROPHILS % (AUTO) 61 % (42-75); PLATELET COUNT 386 x10^3/uL (130-400); RED BLOOD COUNT 3.77 x10^6/uL (4.38-5.82); RED CELL DISTRIBUTION WIDTH 13.4 % (9.4-14.8)
[2018-12-15] MEDS: NYSTATIN 500,000 UNITS/5 ML UDC PO SCH ×4 (05:28→22:26)
[2018-12-15] MEDS: CARVEDILOL 12.5 MG TABLET PO SCH ×2 (05:28→17:06)
[2018-12-15 05:29] LABS: CHLORIDE 115 mmol/L (98-107)
[2018-12-15 05:33] LABS: ALANINE AMINOTRANSFERASE 45 U/L (12-78); ALBUMIN 2.4 g/dL (3.4-5.0); ALKALINE PHOSPHATASE 70 U/L (45-117); ANION GAP 6 mmol/L (5-15); BILIRUBIN,TOTAL 0.5 mg/dL (0.2-1.0); CALCIUM 8.4 mg/dL (8.5-10.1); CREATININE 0.82 mg/dL (0.7-1.3); TOTAL PROTEIN 6.1 g/dL (6.4-8.2)
[2018-12-15 06:50] VITALS: BP 146/83
[2018-12-15] MEDS: SODIUM CHLORIDE FLUSH 10ML SYR IVF SCH ×2 (09:00→22:28)
[2018-12-15] MEDS: SENNA/DOCUSATE TABLET PO SCH (09:27)
[2018-12-15] MEDS: THIAMINE 100MG TABLET PO SCH (09:27)
--- NOTE | 2018-12-15 09:59 | NUR ---
REC: Advance to ground diet with NTL with 1:1 assistance for meals; strict aspiration precautions Addendum: 12/15/18 at 1000 by Cheyanne GARSIA Amended: Links added.
[2018-12-15 13:03] VITALS: BP 160/88
[2018-12-15] MEDS: ENOXAPARIN 40 MG/0.4 ML SQ SCH (17:08)
[2018-12-15] MEDS: RISPERIDONE 0.5 MG TABLET PO SCH ×2 (17:08→22:27)
[2018-12-15] MEDS: ISOSORBIDE DINITRATE 10 MG TABLET PO SCH ×2 (17:09→22:28)
[2018-12-15 19:48] VITALS: BP 152/83
[2018-12-16 02:00] VITALS: BP 157/84
[2018-12-16] MEDS: LORazepam 0.5MG TABLET PO PRN (04:05)
[2018-12-16] MEDS: NYSTATIN 500,000 UNITS/5 ML UDC PO SCH ×4 (06:32→21:31)
[2018-12-16] MEDS: CARVEDILOL 12.5 MG TABLET PO SCH ×2 (06:33→17:05)
[2018-12-16 06:56] VITALS: BP 138/82
[2018-12-16] MEDS: SENNA/DOCUSATE TABLET PO SCH (09:00)
[2018-12-16] MEDS: THIAMINE 100MG TABLET PO SCH (09:13)
[2018-12-16] MEDS: ISOSORBIDE DINITRATE 10 MG TABLET PO SCH ×3 (09:13→21:32)
[2018-12-16] MEDS: SODIUM CHLORIDE FLUSH 10ML SYR IVF SCH ×2 (09:13→21:32)
[2018-12-16] MEDS ORDERED: SODIUM CHLORIDE 0.9% 1,000 ML IV SCH (09:30)
[2018-12-16] MEDS ORDERED: HALOPERIDOL 5 MG/ML IV PRN (09:30)
[2018-12-16 12:35] VITALS: BP 94/56
[2018-12-16] MEDS: RISPERIDONE 0.5 MG TABLET PO SCH ×2 (17:05→21:31)
[2018-12-16] MEDS: ENOXAPARIN 40 MG/0.4 ML SQ SCH (17:06)
[2018-12-16 20:00] VITALS: BP 110/67
[2018-12-17 01:32] VITALS: BP 126/68
[2018-12-17] MEDS: NYSTATIN 500,000 UNITS/5 ML UDC PO SCH ×4 (05:43→20:21)
[2018-12-17] MEDS: CARVEDILOL 12.5 MG TABLET PO SCH ×2 (05:44→18:38)
[2018-12-17 08:04] VITALS: BP 129/73
[2018-12-17] MEDS: SENNA/DOCUSATE TABLET PO SCH (09:10)
[2018-12-17] MEDS: THIAMINE 100MG TABLET PO SCH (09:10)
[2018-12-17] MEDS: ISOSORBIDE DINITRATE 10 MG TABLET PO SCH ×3 (09:10→20:25)
[2018-12-17] MEDS: SODIUM CHLORIDE FLUSH 10ML SYR IVF SCH ×2 (09:11→20:24)
[2018-12-17] MEDS: SODIUM CHLORIDE 0.9% 1,000 ML IV SCH (10:29)
[2018-12-17 13:26] VITALS: BP 104/65
[2018-12-17] MEDS: ENOXAPARIN 40 MG/0.4 ML SQ SCH (16:37)
[2018-12-17 20:00] VITALS: BP 138/73
[2018-12-17] MEDS: RISPERIDONE 0.5 MG TABLET PO SCH (20:21)
[2018-12-18 02:00] VITALS: BP 146/82
[2018-12-18] MEDS: NYSTATIN 500,000 UNITS/5 ML UDC PO SCH ×4 (05:45→20:10)
[2018-12-18] MEDS: CARVEDILOL 12.5 MG TABLET PO SCH ×2 (05:45→18:13)
[2018-12-18] MEDS: SODIUM CHLORIDE 0.9% 1,000 ML IV SCH (05:46)
[2018-12-18 07:44] VITALS: BP 140/79
[2018-12-18] MEDS: ISOSORBIDE DINITRATE 10 MG TABLET PO SCH ×3 (09:44→20:11)
[2018-12-18] MEDS: SENNA/DOCUSATE TABLET PO SCH (09:44)
[2018-12-18] MEDS: SODIUM CHLORIDE FLUSH 10ML SYR IVF SCH ×2 (09:44→20:11)
[2018-12-18] MEDS: THIAMINE 100MG TABLET PO SCH (09:44)
[2018-12-18 13:20] VITALS: BP 135/74
[2018-12-18 16:42] VITALS: BP 138/82
[2018-12-18] MEDS: ENOXAPARIN 40 MG/0.4 ML SQ SCH (17:14)
[2018-12-18 20:00] VITALS: BP 110/63
[2018-12-18] MEDS: RISPERIDONE 0.5 MG TABLET PO SCH (20:11)
[2018-12-19] MEDS: SODIUM CHLORIDE 0.9% 1,000 ML IV SCH ×2 (01:14→23:08)
[2018-12-19 02:00] VITALS: BP 147/84
[2018-12-19] MEDS: NYSTATIN 500,000 UNITS/5 ML UDC PO SCH ×4 (05:41→20:36)
[2018-12-19] MEDS: CARVEDILOL 12.5 MG TABLET PO SCH ×2 (05:41→18:19)
[2018-12-19 07:29] VITALS: BP 118/70
[2018-12-19] MEDS: SODIUM CHLORIDE FLUSH 10ML SYR IVF SCH ×2 (09:00→20:37)
[2018-12-19] MEDS: SENNA/DOCUSATE TABLET PO SCH (09:00)
[2018-12-19] MEDS: THIAMINE 100MG TABLET PO SCH (09:05)
[2018-12-19] MEDS: ISOSORBIDE DINITRATE 10 MG TABLET PO SCH ×3 (09:06→20:37)
[2018-12-19] MEDS: ENOXAPARIN 40 MG/0.4 ML SQ SCH (16:57)
[2018-12-19 18:13] VITALS: BP 114/71
[2018-12-19 20:12] VITALS: BP 100/62
[2018-12-19] MEDS: RISPERIDONE 0.5 MG TABLET PO SCH (20:37)
[2018-12-20 01:57] VITALS: BP 168/90
[2018-12-20 05:49] VITALS: BP 187/103
[2018-12-20] MEDS: NYSTATIN 500,000 UNITS/5 ML UDC PO SCH ×4 (05:52→21:08)
[2018-12-20] MEDS: CARVEDILOL 12.5 MG TABLET PO SCH ×2 (05:52→17:20)
[2018-12-20 06:48] VITALS: BP 156/78
[2018-12-20 08:29] VITALS: BP 172/94
[2018-12-20] MEDS: SODIUM CHLORIDE FLUSH 10ML SYR IVF SCH ×2 (08:41→21:07)
[2018-12-20] MEDS: THIAMINE 100MG TABLET PO SCH (08:42)
[2018-12-20] MEDS: ISOSORBIDE DINITRATE 10 MG TABLET PO SCH ×3 (08:42→21:08)
[2018-12-20] MEDS: SENNA/DOCUSATE TABLET PO SCH (08:43)
[2018-12-20] MEDS ORDERED: hydrALAzine 20 MG/ML, 1ML IV PRN (10:00)
[2018-12-20 14:00] VITALS: BP 159/89
[2018-12-20] MEDS: ENOXAPARIN 40 MG/0.4 ML SQ SCH (17:24)
[2018-12-20] MEDS: SODIUM CHLORIDE 0.9% 1,000 ML IV SCH (17:24)
[2018-12-20 19:52] VITALS: BP 143/80
[2018-12-20] MEDS: RISPERIDONE 0.5 MG TABLET PO SCH (21:08)
[2018-12-21 00:59] VITALS: BP 156/77
[2018-12-21 05:57] VITALS: BP 161/90
[2018-12-21] MEDS: NYSTATIN 500,000 UNITS/5 ML UDC PO SCH ×4 (05:58→21:02)
[2018-12-21] MEDS: CARVEDILOL 12.5 MG TABLET PO SCH ×2 (05:59→17:08)
[2018-12-21 06:36] LABS: CREATININE 0.89 mg/dL (0.7-1.3)
[2018-12-21 07:04] VITALS: BP 151/87
[2018-12-21] MEDS: ISOSORBIDE DINITRATE 10 MG TABLET PO SCH ×3 (09:00→21:01)
[2018-12-21] MEDS: SODIUM CHLORIDE FLUSH 10ML SYR IVF SCH ×2 (09:00→21:02)
[2018-12-21] MEDS: SENNA/DOCUSATE TABLET PO SCH (09:00)
[2018-12-21] MEDS: LISINOPRIL 10 MG TABLET PO SCH ×2 (09:00→21:01)
[2018-12-21] MEDS: THIAMINE 100MG TABLET PO SCH (09:00)
[2018-12-21] MEDS: SODIUM CHLORIDE 0.9% 1,000 ML IV SCH (12:58)
[2018-12-21 13:53] VITALS: BP 116/71
[2018-12-21] MEDS: ENOXAPARIN 40 MG/0.4 ML SQ SCH (17:12)
[2018-12-21 19:25] VITALS: BP 117/64
[2018-12-21] MEDS: RISPERIDONE 0.5 MG TABLET PO SCH (21:02)
[2018-12-22] VITALS (7 sets, daily range): BP systolic 91–147; BP diastolic 51–84
[2018-12-22] MEDS: NYSTATIN 500,000 UNITS/5 ML UDC PO SCH ×4 (05:49→22:30)
[2018-12-22] MEDS: CARVEDILOL 12.5 MG TABLET PO SCH ×2 (05:49→17:54)
[2018-12-22] MEDS ORDERED: FENTANYL PF 100 MCG/2ML ONE (10:38)
[2018-12-22] MEDS ORDERED: MIDAZOLAM 1 MG/ML, 5ML ONE (10:38)
[2018-12-22] MEDS: ISOSORBIDE DINITRATE 10 MG TABLET PO SCH ×3 (11:27→22:24)
[2018-12-22] MEDS: LISINOPRIL 10 MG TABLET PO SCH ×2 (11:27→22:29)
[2018-12-22] MEDS: THIAMINE 100MG TABLET PO SCH (11:27)
[2018-12-22] MEDS: SENNA/DOCUSATE TABLET PO SCH (11:27)
[2018-12-22] MEDS: SODIUM CHLORIDE 0.9% 1,000 ML IV SCH (11:28)
[2018-12-22] MEDS: SODIUM CHLORIDE FLUSH 10ML SYR IVF SCH ×2 (11:28→21:00)
--- NOTE | 2018-12-22 15:15 | NUR ---
REC: CHOPPED DIET WITH NTL WITH INTERMITTENT SUPERVISION FOR MEALS Addendum: 12/22/18 at 1515 by Cheyanne GARSIA Amended: Links added.
[2018-12-22] MEDS: ASPIRIN 81 MG TABLET CHEW PO SCH (15:37)
[2018-12-22] MEDS: ENOXAPARIN 40 MG/0.4 ML SQ SCH (17:54)
[2018-12-22] MEDS: RISPERIDONE 0.5 MG TABLET PO SCH (22:29)
[2018-12-22] MEDS: ATORVASTATIN 40 MG TABLET PO SCH (22:30)
[2018-12-23] VITALS (7 sets, daily range): BP systolic 103–180; BP diastolic 50–92
[2018-12-23] MEDS: NYSTATIN 500,000 UNITS/5 ML UDC PO SCH ×4 (05:36→21:21)
[2018-12-23] MEDS: CARVEDILOL 12.5 MG TABLET PO SCH ×2 (05:39→17:35)
[2018-12-23] MEDS: SODIUM CHLORIDE 0.9% 1,000 ML IV SCH (05:43)
[2018-12-23 06:04] LABS: CALCIUM 8.9 mg/dL (8.5-10.1); CHLORIDE 107 mmol/L (98-107)
[2018-12-23 06:09] LABS: ALANINE AMINOTRANSFERASE 36 U/L (12-78); ALBUMIN 2.5 g/dL (3.4-5.0); ALKALINE PHOSPHATASE 88 U/L (45-117); ANION GAP 5 mmol/L (5-15); BILIRUBIN,TOTAL 0.4 mg/dL (0.2-1.0); CREATININE 0.85 mg/dL (0.7-1.3); TOTAL PROTEIN 6.3 g/dL (6.4-8.2)
[2018-12-23] MEDS: SODIUM CHLORIDE FLUSH 10ML SYR IVF SCH ×2 (09:00→21:00)
[2018-12-23] MEDS: ASPIRIN 81 MG TABLET CHEW PO SCH (09:46)
[2018-12-23] MEDS: SENNA/DOCUSATE TABLET PO SCH (09:46)
[2018-12-23] MEDS: THIAMINE 100MG TABLET PO SCH (09:46)
[2018-12-23] MEDS: LISINOPRIL 10 MG TABLET PO SCH ×2 (09:47→21:21)
[2018-12-23] MEDS: ISOSORBIDE DINITRATE 10 MG TABLET PO SCH ×3 (09:47→21:21)
[2018-12-23] MEDS: ENOXAPARIN 40 MG/0.4 ML SQ SCH (17:36)
[2018-12-23] MEDS: RISPERIDONE 0.5 MG TABLET PO SCH (21:20)
[2018-12-23] MEDS: ATORVASTATIN 40 MG TABLET PO SCH (21:21)
[2018-12-24 01:34] VITALS: BP 132/73
[2018-12-24] MEDS: SODIUM CHLORIDE 0.9% 1,000 ML IV SCH ×2 (03:30→23:30)
[2018-12-24 05:25] LABS: CREATININE 0.81 mg/dL (0.7-1.3)
[2018-12-24 05:29] VITALS: BP 138/83
[2018-12-24] MEDS: CARVEDILOL 12.5 MG TABLET PO SCH ×2 (05:31→18:01)
[2018-12-24] MEDS: NYSTATIN 500,000 UNITS/5 ML UDC PO SCH ×4 (05:32→20:29)
[2018-12-24 08:03] VITALS: BP 135/78
[2018-12-24] MEDS: THIAMINE 100MG TABLET PO SCH (09:00)
[2018-12-24] MEDS: SODIUM CHLORIDE FLUSH 10ML SYR IVF SCH ×2 (09:44→20:30)
[2018-12-24] MEDS: SENNA/DOCUSATE TABLET PO SCH (09:45)
[2018-12-24] MEDS: ISOSORBIDE DINITRATE 10 MG TABLET PO SCH ×3 (09:45→20:29)
[2018-12-24] MEDS: LISINOPRIL 10 MG TABLET PO SCH ×2 (09:45→20:29)
[2018-12-24] MEDS: ASPIRIN 81 MG TABLET CHEW PO SCH (09:45)
[2018-12-24 13:20] VITALS: BP 132/82
[2018-12-24] MEDS: ENOXAPARIN 40 MG/0.4 ML SQ SCH (16:35)
[2018-12-24 19:49] VITALS: BP 140/93
[2018-12-24 20:27] VITALS: BP 157/86
[2018-12-24] MEDS: ATORVASTATIN 40 MG TABLET PO SCH (20:28)
[2018-12-24] MEDS: RISPERIDONE 0.5 MG TABLET PO SCH (20:29)
[2018-12-25] VITALS (8 sets, daily range): BP systolic 145–170; BP diastolic 75–98
[2018-12-25] MEDS: NYSTATIN 500,000 UNITS/5 ML UDC PO SCH ×4 (05:40→20:42)
[2018-12-25] MEDS: CARVEDILOL 12.5 MG TABLET PO SCH ×2 (05:40→17:11)
[2018-12-25] MEDS: ASPIRIN 81 MG TABLET CHEW PO SCH (09:52)
[2018-12-25] MEDS: THIAMINE 100MG TABLET PO SCH (09:52)
[2018-12-25] MEDS: SENNA/DOCUSATE TABLET PO SCH (09:52)
[2018-12-25] MEDS: LISINOPRIL 20 MG TABLET PO SCH ×2 (09:52→20:42)
[2018-12-25] MEDS: SODIUM CHLORIDE FLUSH 10ML SYR IVF SCH ×2 (09:53→20:44)
[2018-12-25] MEDS: ENOXAPARIN 40 MG/0.4 ML SQ SCH (17:07)
[2018-12-25] MEDS: ATORVASTATIN 40 MG TABLET PO SCH (20:42)
[2018-12-25] MEDS: RISPERIDONE 0.5 MG TABLET PO SCH (20:43)
[2018-12-26 01:02] VITALS: BP 148/82
[2018-12-26 06:46] VITALS: BP 156/87
[2018-12-26] MEDS: NYSTATIN 500,000 UNITS/5 ML UDC PO SCH ×4 (08:17→20:56)
[2018-12-26] MEDS: CARVEDILOL 12.5 MG TABLET PO SCH ×2 (08:17→16:59)
[2018-12-26] MEDS: THIAMINE 100MG TABLET PO SCH (08:18)
[2018-12-26] MEDS: LISINOPRIL 20 MG TABLET PO SCH ×3 (08:18→22:18)
[2018-12-26] MEDS: ASPIRIN 81 MG TABLET CHEW PO SCH (08:18)
[2018-12-26] MEDS: SENNA/DOCUSATE TABLET PO SCH (08:19)
[2018-12-26] MEDS: SODIUM CHLORIDE FLUSH 10ML SYR IVF SCH ×2 (08:20→20:56)
[2018-12-26 14:38] VITALS: BP 131/76
[2018-12-26] MEDS: ENOXAPARIN 40 MG/0.4 ML SQ SCH (16:59)
[2018-12-26 17:00] VITALS: BP 146/79
[2018-12-26 18:43] VITALS: BP 116/68
[2018-12-26] MEDS: RISPERIDONE 0.5 MG TABLET PO SCH ×2 (20:56→22:19)
[2018-12-26] MEDS: ATORVASTATIN 40 MG TABLET PO SCH ×2 (20:56→22:18)
[2018-12-27 02:02] VITALS: BP 133/75
[2018-12-27 06:11] LABS: CREATININE 0.74 mg/dL (0.7-1.3)
[2018-12-27] MEDS: CARVEDILOL 12.5 MG TABLET PO SCH ×2 (06:31→18:46)
[2018-12-27] MEDS: NYSTATIN 500,000 UNITS/5 ML UDC PO SCH ×4 (06:31→20:49)
[2018-12-27 07:12] VITALS: BP 130/79
[2018-12-27] MEDS: THIAMINE 100MG TABLET PO SCH (08:41)
[2018-12-27] MEDS: ASPIRIN 81 MG TABLET CHEW PO SCH (08:41)
[2018-12-27] MEDS: SENNA/DOCUSATE TABLET PO SCH (08:41)
[2018-12-27] MEDS: LISINOPRIL 20 MG TABLET PO SCH ×2 (08:42→20:48)
[2018-12-27] MEDS: SODIUM CHLORIDE FLUSH 10ML SYR IVF SCH ×2 (08:42→20:51)
[2018-12-27 12:41] VITALS: BP 144/82
[2018-12-27] MEDS: ENOXAPARIN 40 MG/0.4 ML SQ SCH (18:47)
[2018-12-27 19:58] VITALS: BP 120/61
[2018-12-27] MEDS: RISPERIDONE 0.5 MG TABLET PO SCH (20:48)
[2018-12-27] MEDS: ATORVASTATIN 40 MG TABLET PO SCH (20:48)
[2018-12-28 01:40] VITALS: BP 149/77
[2018-12-28] MEDS: CARVEDILOL 12.5 MG TABLET PO SCH ×2 (06:39→17:51)
[2018-12-28] MEDS: NYSTATIN 500,000 UNITS/5 ML UDC PO SCH ×4 (06:39→20:10)
[2018-12-28 07:35] VITALS: BP 121/72
[2018-12-28] MEDS: SENNA/DOCUSATE TABLET PO SCH (08:45)
[2018-12-28] MEDS: SODIUM CHLORIDE FLUSH 10ML SYR IVF SCH ×2 (08:55→20:17)
[2018-12-28] MEDS: LISINOPRIL 20 MG TABLET PO SCH ×2 (08:55→20:11)
[2018-12-28] MEDS: ASPIRIN 81 MG TABLET CHEW PO SCH (08:55)
[2018-12-28] MEDS: THIAMINE 100MG TABLET PO SCH (08:55)
[2018-12-28 12:32] VITALS: BP 114/70
[2018-12-28] MEDS: ENOXAPARIN 40 MG/0.4 ML SQ SCH (17:52)
[2018-12-28 20:09] VITALS: BP 127/76
[2018-12-28] MEDS: RISPERIDONE 0.5 MG TABLET PO SCH (20:10)
[2018-12-28] MEDS: ATORVASTATIN 40 MG TABLET PO SCH (20:10)
[2018-12-29 02:04] VITALS: BP 125/67
[2018-12-29] MEDS: CARVEDILOL 12.5 MG TABLET PO SCH ×2 (05:47→18:10)
[2018-12-29] MEDS: NYSTATIN 500,000 UNITS/5 ML UDC PO SCH ×4 (05:47→21:29)
[2018-12-29 06:40] VITALS: BP 136/79
[2018-12-29] MEDS: SODIUM CHLORIDE FLUSH 10ML SYR IVF SCH ×2 (10:06→21:30)
[2018-12-29] MEDS: THIAMINE 100MG TABLET PO SCH (10:06)
[2018-12-29] MEDS: LISINOPRIL 20 MG TABLET PO SCH ×2 (10:06→21:28)
[2018-12-29] MEDS: SENNA/DOCUSATE TABLET PO SCH (10:06)
[2018-12-29] MEDS: ASPIRIN 81 MG TABLET CHEW PO SCH (10:06)
[2018-12-29 13:17] VITALS: BP 133/74
[2018-12-29] MEDS: ENOXAPARIN 40 MG/0.4 ML SQ SCH (16:13)
[2018-12-29 18:53] VITALS: BP_SYST 145; BP_SYST 154; BP_DIAS 77; BP_DIAS 82
[2018-12-29] MEDS: ATORVASTATIN 40 MG TABLET PO SCH (21:28)
[2018-12-29] MEDS: RISPERIDONE 0.5 MG TABLET PO SCH (21:29)
[2018-12-29] MEDS ORDERED: ACETAMINOPHEN 325 MG TABLET PO ONE (22:00)
[2018-12-29] MEDS ORDERED: ACETAMINOPHEN 325 MG TABLET PO PRN (23:00)
[2018-12-29 23:41] VITALS: BP 139/75
[2018-12-30 05:41] LABS: CREATININE 0.85 mg/dL (0.7-1.3)
[2018-12-30 05:51] VITALS: BP 152/78
[2018-12-30] MEDS: CARVEDILOL 12.5 MG TABLET PO SCH (05:54)
[2018-12-30] MEDS: NYSTATIN 500,000 UNITS/5 ML UDC PO SCH ×2 (05:54→11:00)
[2018-12-30 06:53] VITALS: BP 117/70
[2018-12-30] MEDS: SENNA/DOCUSATE TABLET PO SCH (09:46)
[2018-12-30] MEDS: SODIUM CHLORIDE FLUSH 10ML SYR IVF SCH (09:46)
[2018-12-30] MEDS: THIAMINE 100MG TABLET PO SCH (09:46)
[2018-12-30] MEDS: ASPIRIN 81 MG TABLET CHEW PO SCH (09:46)
[2018-12-30] MEDS: LISINOPRIL 20 MG TABLET PO SCH (09:46)
[2018-12-30] MEDS ORDERED: THIA100T67 PO (11:03)
[2018-12-30] MEDS ORDERED: ATOR40TA78 PO (11:03)
[2018-12-30] MEDS ORDERED: DIVA125C2 PO (11:03)
[2018-12-30] MEDS ORDERED: LISI-170 PO (11:03)
[2018-12-30] MEDS ORDERED: RISP0.5T24 PO (11:03)
[2018-12-30] MEDS ORDERED: CARV12.543 PO (11:03)
[2018-12-30] MEDS ORDERED: ASPI-515 PO (11:03)
[2018-12-30 12:19] VITALS: BP 99/57
[2018-12-30 13:55] VITALS: BP 126/71
== END 2018-12-30 16:04 | DRG 871 ==
LOC: ED 17:59 → EDIP 18:21 → 3NW 19:00 → 4EST 12-06 20:45
PROVIDERS: ADMIT Hospitalist; ATTEND Hospitalist
PROC: 0D9670Z Drainage of Stomach with Drainage Device, Via Natural or Artificial Opening (ICD-10-PCS; principal; 2018-12-12)
DX: A41.9 Sepsis, unspecified organism (principal); G92 Toxic encephalopathy; R53.2 Functional quadriplegia; E44.1 Mild protein-calorie malnutrition; E87.1 Hypo-osmolality and hyponatremia; F10.239 Alcohol dependence with withdrawal, unspecified; I50.42 Chronic combined systolic (congestive) and diastolic (congestive) heart failure; E72.20 Disorder of urea cycle metabolism, unspecified; E87.0 Hyperosmolality and hypernatremia; I42.9 Cardiomyopathy, unspecified; I47.1 Supraventricular tachycardia; J98.11 Atelectasis; Z72.0 Tobacco use; I65.23 Occlusion and stenosis of bilateral carotid arteries; N40.0 Benign prostatic hyperplasia without lower urinary tract symptoms; I73.9 Peripheral vascular disease, unspecified; I27.21 Secondary pulmonary arterial hypertension; I11.0 Hypertensive heart disease with heart failure; F03.90 Unspecified dementia, unspecified severity, without behavioral disturbance, psychotic disturbance, mood disturbance, and anxiety; R53.81 Other malaise; D53.9 Nutritional anemia, unspecified; D75.89 Other specified diseases of blood and blood-forming organs; E87.6 Hypokalemia; F41.1 Generalized anxiety disorder; N30.91 Cystitis, unspecified with hematuria; Z79.899 Other long term (current) drug therapy; Z96.653 Presence of artificial knee joint, bilateral; Z88.8 Allergy status to other drugs, medicaments and biological substances; Z82.3 Family history of stroke; Z82.49 Family history of ischemic heart disease and other diseases of the circulatory system; Z68.23 Body mass index [BMI] 23.0-23.9, adult
CPT/HCPCS: 36415; 70450; 70551; 71045; 71260; 72050; 72072; 72110; 74018; 74177; 76700; 80048; 80053; 80076; 81001; 82040; 82140; 82565; 82607; 82746; 82962; 83605; 83735; 84100; 84145; 84443; 84484; 85025; 87040; 87077; 87086; 87186; 87806; 93005; 93306; 93880; 95819; 96365; 96372; G0378; J0696; J1644; J1650; J1885; J2250; J2543; J3010; J3411; J3475; J3480; J7060; J7070; Q9967; G0475; J0360; J1940; J2060; J3420; J7030; J7121